=== PATIENT | male | born 1945 | race Caucasian/White ===

== ENCOUNTER → 2017-11-06 | Outpatient (CLI) | payer MEDICARE ==
[~2017-11-06] MED LIST: AMLO10 PO; ASPI325 PO; GLIP10 PO; HYDCHL25 PO; HYDR10 PO; LISI20 PO; METF500C PO; METO50; SIMV40 PO
[2017-11-06 12:06] LABS: Protein, Urine Quantitative 44.6 mg/dL (0.0-11.9)
== END | disposition home or self-care (01) ==
LOC: LAB SHORT 10:10 → OLS 10:10 → LAB FUT 11-04 13:20
PROVIDERS: Internal Medicine
DX: R80.9 Proteinuria, unspecified (principal)
CPT/HCPCS: 81050; 84156

== ENCOUNTER → 2018-01-07 | Outpatient (CLI) | payer MEDICARE ==
[2018-01-07 16:28] LABS: Anion Gap 9 mmol/L (6-16); Blood Urea Nitrogen 18 mg/dL (8-24); Bun/Creatinine Ratio 17.1 (12.0-20.0); CO2, Blood 24 mmol/L (21-32); Calcium, Blood 9.1 mg/dL (8.5-10.1); Chloride, Blood 106 mmol/L (98-108); Creatinine, Blood 1.05 mg/dL (0.60-1.20); Glomerular Filtration Rate >60 (60-); Glucose, Blood 177 mg/dL (70-99); Phosphorus, Blood 2.9 mg/dL (2.5-4.9); Potassium, Blood 5.1 mmol/L (3.5-5.5); Sodium, Blood 139 mmol/L (136-145)
== END ==
LOC: LAB SHORT 13:39 → OLS 13:39
PROVIDERS: Internal Medicine
DX: N28.9 Disorder of kidney and ureter, unspecified (principal)
CPT/HCPCS: 36415; 80069

== ENCOUNTER 2021-12-07 18:20 | Emergency (ER) | payer MEDICARE, OTHER ==
[~2021-12-07] VITALS: Ht 170.2 cm; Wt 81.7 kg
[2021-12-07 19:12] LABS: BASOPHILS ABSOLUTE AUTO 0.04 K/mm3 (0.00-0.23); BASOPHILS PERCENT AUTO 0 % (0-2); EOSINOPHILS ABSOLUTE AUTO 0.01 K/mm3 (0.00-0.68); EOSINOPHILS PERCENT AUTO 0 % (0-6); Hematocrit 45.2 % (37.0-53.0); Hemoglobin 15.6 g/dL (13.5-17.5); IMMATURE GRAN ABSOLUTE AUTO 0.04 K/mm3 (0.00-0.10); IMMATURE GRAN PERCENT AUTO 0 % (0-1); LYMPHOCYTES ABSOLUTE AUTO 0.85 K/mm3 (0.84-5.20); LYMPHOCYTES PERCENT AUTO 8 % (21-46); MONOCYTES ABSOLUTE AUTO 0.17 K/mm3 (0.16-1.47); MONOCYTES PERCENT AUTO 2 % (4-13); Mean Corpuscular HGB 30.6 pg (26.0-34.0); Mean Corpuscular HGB Conc 34.5 g/dL (31.5-36.5); Mean Corpuscular Volume 89 fL (80-100); Mean Platelet Volume 10.4 fL (9.1-12.4); NEUTROPHILS ABSOLUTE AUTO 10.18 K/mm3 (1.96-9.15); NEUTROPHILS PERCENT AUTO 90 % (41-73); Platelet Count 223 K/mm3 (150-400); RDW Coefficient Variation 13.3 % (11.7-14.2); RDW Standard Deviation 43.4 fL (35.1-46.3); White Blood Cell Count 11.29 K/mm3 (4.00-11.30)
[2021-12-07 19:30] LABS: Albumin/Globulin Ratio 1.1 (0.8-1.8); Bilirubin, Total 0.7 mg/dL (0.1-1.0); Calcium, Blood 9.6 mg/dL (8.5-10.1); Creatinine, Blood 0.88 mg/dL (0.60-1.20); Globulin, Blood 3.7 g/dL (2.2-4.0); Potassium, Blood 4.2 mmol/L (3.5-5.5); Total Protein, Blood 7.7 g/dL (6.4-8.2)
[2021-12-07] MEDS ORDERED: CARV3.125 PO (19:41)
[2021-12-07] MEDS ORDERED: ESCI10 PO (19:42)
[2021-12-07] MEDS ORDERED: GLYXAMBI 25 MG1 EACH PO (19:42)
[2021-12-07 19:43] LABS: Magnesium, Blood 1.9 mg/dL (1.6-2.4)
[2021-12-07] MEDS ORDERED: HYDR10 PO (19:43)
[2021-12-07] MEDS ORDERED: JARDIANCE10 MG (19:44)
[2021-12-07] MEDS ORDERED: ONDA4ODT MM (19:53)
== END 2021-12-07 19:58 | disposition home or self-care (01) ==
LOC: ER 18:20
PROVIDERS: Student in an Organized Health Care Education/Training Program
DX: K52.9 Noninfective gastroenteritis and colitis, unspecified (principal); A05.9 Bacterial foodborne intoxication, unspecified; I10 Essential (primary) hypertension; E11.42 Type 2 diabetes mellitus with diabetic polyneuropathy; E78.5 Hyperlipidemia, unspecified; F17.220 Nicotine dependence, chewing tobacco, uncomplicated; Z79.84 Long term (current) use of oral hypoglycemic drugs; Z79.899 Other long term (current) drug therapy; Z79.82 Long term (current) use of aspirin
CPT/HCPCS: 36415; 80053; 83690; 83735; 85025; A9270; J2405

== ENCOUNTER 2021-12-17 06:04 | Day surgery (SDC) | payer MEDICARE, OTHER ==
[~2021-12-17] VITALS: Ht 170.2 cm; Wt 77.8 kg
[~2021-12-17 06:04] MED LIST changes: +CARV3.125 PO; +ESCI10 PO; +GLYXAMBI 25 MG1 EACH PO; +JARDIANCE10 MG; +ONDA4ODT MM
== END 2021-12-17 08:06 | disposition home or self-care (01) ==
LOC: ORSCSDS 06:04
PROVIDERS: Ophthalmology
PROC: 08RJ3JZ Replacement of Right Lens with Synthetic Substitute, Percutaneous Approach (ICD-10-PCS; principal; 2021-12-17 07:30)
DX: H25.11 Age-related nuclear cataract, right eye (principal); E11.9 Type 2 diabetes mellitus without complications; I10 Essential (primary) hypertension; Z86.73 Personal history of transient ischemic attack (TIA), and cerebral infarction without residual deficits; E78.00 Pure hypercholesterolemia, unspecified; Z87.891 Personal history of nicotine dependence; Z79.82 Long term (current) use of aspirin; Z79.84 Long term (current) use of oral hypoglycemic drugs; Z79.899 Other long term (current) drug therapy
CPT/HCPCS: 82947; J2001; J2250; J3010; J7040; V2632

== ENCOUNTER 2022-05-27 08:18 | Emergency (ER) | payer MEDICARE, OTHER ==
[~2022-05-27] VITALS: Ht 170.2 cm; Wt 74.8 kg
[~2022-05-27 08:18] MED LIST changes: +FAMO20 PO; +HYDR1TAB94 PO; +INSULIN GL100 UNIT/2 SC
[2022-05-27] MEDS ORDERED: COMBIGAN 0.2%-0.5 ML BOTHEYES (09:23)
[2022-05-27] MEDS ORDERED: HYDRA25 PO (09:43)
== END 2022-05-27 10:40 | disposition home or self-care (01) ==
LOC: ER 08:18
DX: I10 Essential (primary) hypertension (principal); R51.9 Headache, unspecified; E11.42 Type 2 diabetes mellitus with diabetic polyneuropathy; F17.220 Nicotine dependence, chewing tobacco, uncomplicated; Z79.899 Other long term (current) drug therapy; Z79.82 Long term (current) use of aspirin; Z79.4 Long term (current) use of insulin
CPT/HCPCS: A9270

== ENCOUNTER 2022-12-31 10:50 | Emergency (ER) | payer MEDICARE, OTHER ==
[~2022-12-31] VITALS: Ht 170.2 cm; Wt 72.6 kg
[~2022-12-31 10:50] MED LIST changes: +COMBIGAN 0.2%-0.5 ML BOTHEYES; +HYDRA25 PO
[2022-12-31] MEDS ORDERED: METF500C PO (11:29)
[2022-12-31] MEDS ORDERED: SPIRONOLACTONE25 MG PO (11:31)
[2022-12-31] MEDS ORDERED: RYBELSUS14 MG PO (11:31)
[2022-12-31] MEDS ORDERED: Potassium Chlo20 ME1 PO (11:31)
[2022-12-31] MEDS ORDERED: Simvastatin40 MG PO (11:32)
[2022-12-31] MEDS ORDERED: GLYXAMBI 25 MG1 EACH PO (11:33)
[2022-12-31 11:38] LABS: BASOPHILS ABSOLUTE AUTO 0.01 K/mm3 (0.00-0.23); BASOPHILS PERCENT AUTO 0 % (0-2); EOSINOPHILS PERCENT AUTO 0 % (0-6); Hematocrit 43.9 % (37.0-53.0); IMMATURE GRAN ABSOLUTE AUTO 0.08 K/mm3 (0.00-0.10); IMMATURE GRAN PERCENT AUTO 1 % (0-1); LYMPHOCYTES PERCENT AUTO 8 % (21-46); MONOCYTES ABSOLUTE AUTO 0.44 K/mm3 (0.16-1.47); MONOCYTES PERCENT AUTO 3 % (4-13); Mean Corpuscular HGB 30.8 pg (26.0-34.0); Mean Corpuscular HGB Conc 36.4 g/dL (31.5-36.5); Mean Corpuscular Volume 85 fL (80-100); Mean Platelet Volume 9.9 fL (9.1-12.4); NEUTROPHILS ABSOLUTE AUTO 11.33 K/mm3 (1.96-9.15); NEUTROPHILS PERCENT AUTO 88 % (41-73); Platelet Count 312 K/mm3 (150-400); RDW Coefficient Variation 13.2 % (11.7-14.2); RDW Standard Deviation 40.6 fL (35.1-46.3); Red Blood Cell Count 5.19 M/mm3 (4.30-5.90); White Blood Cell Count 12.86 K/mm3 (4.00-11.30)
[2022-12-31 11:55] LABS: Albumin, Blood 3.6 g/dL (3.4-5.0); Albumin/Globulin Ratio 0.9 (0.8-1.8); Bun/Creatinine Ratio 20.5 (12.0-20.0); Calcium, Blood 9.6 mg/dL (8.5-10.1); Creatinine, Blood 1.17 mg/dL (0.60-1.20); Globulin, Blood 3.8 g/dL (2.2-4.0); Potassium, Blood 4.2 mmol/L (3.5-5.5); Total Protein, Blood 7.4 g/dL (6.4-8.2)
[2022-12-31 12:11] LABS: Base Excess Venous 3.6 mmol/L; Bicarbonate Venous 27.1 mmol/L (24.0-30.0); PCO2 Venous 40.9 mmHg (38-42); pH Blood Venous 7.44 (7.34-7.37)
[2022-12-31 13:16] LABS: Source, Urine Clean Catch
[2022-12-31 13:19] LABS: Appearance, Urine Clear (Clear); Bilirubin, Urine Neg (Neg); Blood, Urine 2+ (Neg); Color, Urine Yellow (P-Yellow); Glucose Qualitative, Urine 4+ (Neg); Ketones, Urine 4+ (Neg); Leukocyte Esterase, Urine Neg (Neg); Nitrite, Urine Neg (Neg); Protein, Urine 4+ (Neg); Specific Gravity, Urine 1.015 (1.003-1.022); Urobilinogen, Urine NORM (Normal)
[2022-12-31 13:43] LABS: Bacteria Rare /hpf; Squamous Epithelial Cells Rare /hpf (Few); White Blood Cells, Urine 0-2 /hpf (0-5)
[2022-12-31 13:44] LABS: Amorphous Light (0-Heavy); Mucus Light (0-Heavy)
[2022-12-31 16:00] VITALS: BP 158/87
[2022-12-31] MEDS ORDERED: PROM25 PO (16:08)
== END 2022-12-31 16:25 | disposition home or self-care (01) ==
LOC: ER 10:50
PROVIDERS: Emergency Medicine
DX: E11.10 Type 2 diabetes mellitus with ketoacidosis without coma (principal); E11.65 Type 2 diabetes mellitus with hyperglycemia; F17.220 Nicotine dependence, chewing tobacco, uncomplicated; Z79.899 Other long term (current) drug therapy; Z79.82 Long term (current) use of aspirin; Z79.84 Long term (current) use of oral hypoglycemic drugs
CPT/HCPCS: 80053; 81001; 82010; 82803; 83690; 85025; 96361; 96374; 96375; 96376; 99283-25; J1790; J2405; J2765; J7030

== ENCOUNTER 2023-05-07 17:44 | Inpatient (IN) | payer MEDICARE, OTHER ==
[~2023-05-07] VITALS: Ht 170.2 cm; Wt 102.0 kg
[~2023-05-07 17:44] MED LIST changes: +PROM25 PO; +Potassium Chlo20 ME1 PO; +RYBELSUS14 MG PO; +SPIRONOLACTONE25 MG PO; +Simvastatin40 MG PO
[2023-05-07 18:21] LABS: BASOPHILS ABSOLUTE AUTO 0.05 K/mm3 (0.00-0.23); BASOPHILS PERCENT AUTO 1 % (0-2); Base Excess Venous -3.2 mmol/L; Bicarbonate Venous 22.5 mmol/L (24.0-30.0); EOSINOPHILS ABSOLUTE AUTO 0.08 K/mm3 (0.00-0.68); EOSINOPHILS PERCENT AUTO 1 % (0-6); Hematocrit 37.8 % (37.0-53.0); Hemoglobin 13.9 g/dL (13.5-17.5); IMMATURE GRAN ABSOLUTE AUTO 0.05 K/mm3 (0.00-0.10); IMMATURE GRAN PERCENT AUTO 1 % (0-1); LYMPHOCYTES ABSOLUTE AUTO 0.97 K/mm3 (0.84-5.20); LYMPHOCYTES PERCENT AUTO 9 % (21-46); MONOCYTES ABSOLUTE AUTO 0.26 K/mm3 (0.16-1.47); MONOCYTES PERCENT AUTO 2 % (4-13); Mean Corpuscular HGB Conc 36.8 g/dL (31.5-36.5); Mean Corpuscular Volume 84 fL (80-100); Mean Platelet Volume 9.6 fL (9.1-12.4); NEUTROPHILS ABSOLUTE AUTO 9.35 K/mm3 (1.96-9.15); NEUTROPHILS PERCENT AUTO 87 % (41-73); PCO2 Venous 30.9 mmHg (38-42); Platelet Count 270 K/mm3 (150-400); RDW Coefficient Variation 12.8 % (11.7-14.2); RDW Standard Deviation 39.8 fL (35.1-46.3); Red Blood Cell Count 4.48 M/mm3 (4.30-5.90); White Blood Cell Count 10.76 K/mm3 (4.00-11.30); pH Blood Venous 7.44 (7.34-7.37)
[2023-05-07 19:09] LABS: Bilirubin, Total 0.7 mg/dL (0.1-1.0); Bun/Creatinine Ratio 17.1 (12.0-20.0); Calcium, Blood 9.6 mg/dL (8.5-10.1); Creatinine, Blood 1.05 mg/dL (0.60-1.20); Potassium, Blood 3.9 mmol/L (3.5-5.5)
[2023-05-08] MEDS ORDERED: Ativan1 MG PO (01:00)
[2023-05-08] MEDS ORDERED: ONDA4ODT MM (01:00)
[2023-05-08 03:53] LABS: BASOPHILS ABSOLUTE AUTO 0.02 K/mm3 (0.00-0.23); BASOPHILS PERCENT AUTO 0 % (0-2); EOSINOPHILS ABSOLUTE AUTO 0.01 K/mm3 (0.00-0.68); EOSINOPHILS PERCENT AUTO 0 % (0-6); Hematocrit 33.7 % (37.0-53.0); Hemoglobin 12.2 g/dL (13.5-17.5); IMMATURE GRAN ABSOLUTE AUTO 0.02 K/mm3 (0.00-0.10); IMMATURE GRAN PERCENT AUTO 0 % (0-1); LYMPHOCYTES ABSOLUTE AUTO 0.56 K/mm3 (0.84-5.20); LYMPHOCYTES PERCENT AUTO 6 % (21-46); MONOCYTES ABSOLUTE AUTO 0.13 K/mm3 (0.16-1.47); MONOCYTES PERCENT AUTO 2 % (4-13); Mean Corpuscular HGB Conc 36.2 g/dL (31.5-36.5); Mean Corpuscular Volume 86 fL (80-100); Mean Platelet Volume 10.1 fL (9.1-12.4); NEUTROPHILS ABSOLUTE AUTO 8.11 K/mm3 (1.96-9.15); NEUTROPHILS PERCENT AUTO 92 % (41-73); Platelet Count 245 K/mm3 (150-400); RDW Coefficient Variation 12.8 % (11.7-14.2); RDW Standard Deviation 39.8 fL (35.1-46.3); Red Blood Cell Count 3.93 M/mm3 (4.30-5.90); White Blood Cell Count 8.85 K/mm3 (4.00-11.30)
[2023-05-08 04:05] LABS: Albumin, Blood 3.7 g/dL (3.4-5.0); Anion Gap 10 mmol/L (6-16); Blood Urea Nitrogen 18 mg/dL (8-24); Bun/Creatinine Ratio 17.8 (12.0-20.0); CO2, Blood 23 mmol/L (21-32); Calcium, Blood 8.8 mg/dL (8.5-10.1); Chloride, Blood 109 mmol/L (98-108); Creatinine, Blood 1.01 mg/dL (0.60-1.20); Glomerular Filtration Rate 78 (60-); Glucose, Blood 201 mg/dL (70-99); Magnesium, Blood 1.4 mg/dL (1.6-2.4); Phosphorus, Blood 3.6 mg/dL (2.5-4.9); Potassium, Blood 3.9 mmol/L (3.5-5.5); Sodium, Blood 142 mmol/L (136-145)
[2023-05-08] MEDS ORDERED: HYDRA50 PO (06:07)
[2023-05-08 07:25] VITALS: BP 178/84
--- NOTE | 2023-05-08 15:54 | NUR ---
SHIFT SUMMARY; PATIENT ARRIVED TO [facility] FLOOR VIA GURNEY FROM ER THIS AM. HE IS AO X 4 ON ARRIVAL. NOTED TO BE VOMITTING OFTEN ON ARRIVAL. DRY HEAVING, AND COMPLAINING OF STOMACH CRAMPING. HE WAS PROVIDED WITH REGLAN IN ER. PATIENT PROVIDED WITH PHENERGRAN GA ON ADDITIONAL REGLAN TODAY FOR NAUSEA WITH MINIMAL RESULTS. HIS BLOOD PRESSURES REMAIN ELEVATED AND HE IS PROVIDED WITH HYDRALAZINE. NO SKIN ISSUES NOTED. PER PATIENT HE GOES THROUGH EPISODES OF NAUSEA EVERY 3 TO 4 MONTHS AND THEN IT RESOLVES AND THEN WILL RETURN 3 OR 4 MONTHS LATER.
[2023-05-08 15:57] VITALS: BP 186/79
[2023-05-08 16:20] VITALS: BP 157/71
[2023-05-08 20:45] VITALS: BP 176/82
[2023-05-09 01:55] VITALS: BP 172/84
[2023-05-09 04:46] LABS: BASOPHILS ABSOLUTE AUTO 0.02 K/mm3 (0.00-0.23); BASOPHILS PERCENT AUTO 0 % (0-2); EOSINOPHILS ABSOLUTE AUTO 0.03 K/mm3 (0.00-0.68); EOSINOPHILS PERCENT AUTO 0 % (0-6); Hematocrit 34.2 % (37.0-53.0); Hemoglobin 12.5 g/dL (13.5-17.5); IMMATURE GRAN ABSOLUTE AUTO 0.11 K/mm3 (0.00-0.10); IMMATURE GRAN PERCENT AUTO 1 % (0-1); LYMPHOCYTES ABSOLUTE AUTO 1.05 K/mm3 (0.84-5.20); LYMPHOCYTES PERCENT AUTO 8 % (21-46); MONOCYTES ABSOLUTE AUTO 0.89 K/mm3 (0.16-1.47); MONOCYTES PERCENT AUTO 6 % (4-13); Mean Corpuscular HGB 31.2 pg (26.0-34.0); Mean Corpuscular HGB Conc 36.5 g/dL (31.5-36.5); Mean Corpuscular Volume 85 fL (80-100); Mean Platelet Volume 9.9 fL (9.1-12.4); NEUTROPHILS ABSOLUTE AUTO 11.79 K/mm3 (1.96-9.15); NEUTROPHILS PERCENT AUTO 85 % (41-73); Platelet Count 266 K/mm3 (150-400); RDW Coefficient Variation 12.9 % (11.7-14.2); Red Blood Cell Count 4.01 M/mm3 (4.30-5.90); White Blood Cell Count 13.89 K/mm3 (4.00-11.30)
[2023-05-09 05:14] LABS: Bun/Creatinine Ratio 16.8 (12.0-20.0); Calcium, Blood 8.6 mg/dL (8.5-10.1); Creatinine, Blood 1.01 mg/dL (0.60-1.20); Potassium, Blood 3.4 mmol/L (3.5-5.5)
--- NOTE | 2023-05-09 06:14 | NUR ---
NOC SHIFT SUMMARY: REGLAN GIVEN ONCE. PATIENT DID NOT WANT IV FLUIDS. PATIENT A&OX4. NO C/O PAIN. BLOOD SUGAR 193 AT HS. HERE FOR INTRACTABLE NAUSEA AND VOMITING.
[2023-05-09 07:37] VITALS: BP 183/88
[2023-05-09 16:20] VITALS: BP 154/85
--- NOTE | 2023-05-09 16:32 | NUR ---
SHIFT SUMMARY PT AWAKE DURING SHIFT REPORT, RESTING QUIETLY IN BED. PT ADMITTED FOR N/V. MEDS GIVEN FOR NAUSEA, BUT PT REMAINED VERY SICK AND UNABLE TO EAT TO PRESENT. DR DUCKWORTH NOTIFIED OF NAUSEA; NEW ORDERS PLACED. PT REPORTED A SMALL AMT OF RELIEF WITH ZOFRAN THIS AM AND WAS ABLE TO TAKE HIS AM MEDS, BUT NAUSEA SOON INCREASED AGAIN. PT GIVEN PHENERGAN THIS AFTERNOON WITH NO EFFECT TO PRESENT. PT IS VERY MISERABLE AND UNABLE TO EAT ANYTHING. SOME ICE WATER TAKEN IN THIS SHIFT; 480cc TO PRESENT. IVF'S INFUSING PER EMAR. PT RESTING QUIETLY IN BED. CALL LT IN REACH.
[2023-05-09 19:53] VITALS: BP 151/71
[2023-05-10 04:07] VITALS: BP 145/86
[2023-05-10 04:53] LABS: BASOPHILS ABSOLUTE AUTO 0.04 K/mm3 (0.00-0.23); BASOPHILS PERCENT AUTO 1 % (0-2); EOSINOPHILS ABSOLUTE AUTO 0.04 K/mm3 (0.00-0.68); EOSINOPHILS PERCENT AUTO 1 % (0-6); Hematocrit 31.8 % (37.0-53.0); Hemoglobin 11.5 g/dL (13.5-17.5); IMMATURE GRAN ABSOLUTE AUTO 0.03 K/mm3 (0.00-0.10); IMMATURE GRAN PERCENT AUTO 0 % (0-1); LYMPHOCYTES ABSOLUTE AUTO 1.49 K/mm3 (0.84-5.20); LYMPHOCYTES PERCENT AUTO 17 % (21-46); MONOCYTES ABSOLUTE AUTO 0.84 K/mm3 (0.16-1.47); MONOCYTES PERCENT AUTO 10 % (4-13); Mean Corpuscular HGB 30.9 pg (26.0-34.0); Mean Corpuscular HGB Conc 36.2 g/dL (31.5-36.5); Mean Corpuscular Volume 86 fL (80-100); Mean Platelet Volume 9.6 fL (9.1-12.4); NEUTROPHILS PERCENT AUTO 72 % (41-73); Platelet Count 209 K/mm3 (150-400); RDW Coefficient Variation 12.8 % (11.7-14.2); RDW Standard Deviation 39.8 fL (35.1-46.3); Red Blood Cell Count 3.72 M/mm3 (4.30-5.90); White Blood Cell Count 8.84 K/mm3 (4.00-11.30)
[2023-05-10 05:17] LABS: Calcium, Blood 8.2 mg/dL (8.5-10.1); Creatinine, Blood 1.06 mg/dL (0.60-1.20); Potassium, Blood 3.3 mmol/L (3.5-5.5)
[2023-05-10 07:20] VITALS: BP 180/81
[2023-05-10 15:45] VITALS: BP 155/81
--- NOTE | 2023-05-10 16:14 | NUR ---
SHIFT SUMMARY PT RESTING QUIETLY AT START OF SHIFT. IVF'S INFUSING PER EMAR. PT CONTINUES TO C/O CONSTANT NAUSEA, WITH SEVERITY INCREASING AT TIMES. NAUSEA MEDICATIONS GIVEN PER EMAR. DR DUCKWORTH IN TO SEE PT AND CONTINUES TO ADD AND ADJUST MEDICATIONS TO PROVIDE RELIEF. PT RECEIVED SOME RELIEF AFTER COMPAZINE. ABLE TO TOLERATE PO MEDS. PT STILL UNABLE TO EAT ANY OF HIS MEALS, BUT WAS ABLE TO SIP ON AN ENSURE THIS AFTERNOON AND KEEP IT DOWN. PT HAS BEEN ABLE TO GET SOME REST TODAY WELL. IN AND OUT AT BS TODAY. RESTING QUIETLY AT THIS TIME. CALL LT IN REACH.
[2023-05-10 19:25] VITALS: BP 152/83
[2023-05-11 02:59] VITALS: BP 122/77
[2023-05-11 05:19] LABS: Bun/Creatinine Ratio 19.4 (12.0-20.0); Calcium, Blood 8.3 mg/dL (8.5-10.1); Creatinine, Blood 1.03 mg/dL (0.60-1.20); Potassium, Blood 3.4 mmol/L (3.5-5.5)
[2023-05-11 07:22] VITALS: BP 163/92
[2023-05-11] MEDS ORDERED: Acetaminophen650 M1 PO (14:17)
[2023-05-11] MEDS ORDERED: AMLO10 PO (14:17)
[2023-05-11] MEDS ORDERED: SENN187 PO (14:18)
[2023-05-11] MEDS ORDERED: METO10 PO (14:18)
[2023-05-11] MEDS ORDERED: PROC5 PO (14:19)
--- NOTE | 2023-05-11 15:40 | NUR ---
DISCUSSED DISCHARGE INSTRUCTIONS WITH PT AND SPOUSE, PROVIDED WRITTEN COPY FOR PT TO TAKE HOME. IV REMOVED. ALL PERSONAL BELONGINGS SENT HOME WITH PT. PT'S PROVIDING TRANSPORTATION VIA PERSONAL VEHICLE. PT TRANSPORTED TO PERSONAL VEHICLE VIA WHEELCHAIR.
== END 2023-05-11 15:10 | disposition home or self-care (01) | DRG 74 ==
LOC: ER 17:44 → MEDS 17:45 → ENPENDDIS 05-11 11:27 → MEDS 05-11 15:10
PROVIDERS: Family Medicine; Internal Medicine; Physician Assistant; ADMIT Internal Medicine
DX: E11.43 Type 2 diabetes mellitus with diabetic autonomic (poly)neuropathy (principal); E86.0 Dehydration; E87.6 Hypokalemia; K31.84 Gastroparesis; I10 Essential (primary) hypertension; H40.9 Unspecified glaucoma; E78.5 Hyperlipidemia, unspecified; Z86.73 Personal history of transient ischemic attack (TIA), and cerebral infarction without residual deficits; Z79.84 Long term (current) use of oral hypoglycemic drugs; Z79.811 Long term (current) use of aromatase inhibitors; Z79.82 Long term (current) use of aspirin; Z79.899 Other long term (current) drug therapy; Z98.890 Other specified postprocedural states; F17.210 Nicotine dependence, cigarettes, uncomplicated; Z86.79 Personal history of other diseases of the circulatory system
CPT/HCPCS: 36415; 71045; 80048; 80053; 80069; 82010; 82803; 82947; 83036; 83735; 85025; 93005; 93010; 96361; 96365; 96366; 96367; 96372; 96374; 96375; 96376; 99285-25; A9270; G0378; J0780; J1650; J1790; J2060; J2405; J2765; J3475; J3480; J7030; J7050; J7120; Q0167